=== PATIENT | female | born 1985 ===

== ENCOUNTER 2021-10-02 08:55 | Outpatient (CLI) | payer OTHER ==
[~2021-10-02 08:55] MED LIST: ANALPRAM HC RC; COLACE100 MG PO; TYLENOL-CODEINE1 TAB PO
== END 2021-10-02 08:58 | disposition home or self-care (01) ==
LOC: NUCLEAR 08:55
DX: I11.9 Hypertensive heart disease without heart failure (principal); Z88.0 Allergy status to penicillin

== ENCOUNTER 2024-06-14 05:24 | Day surgery (SDC) | payer OTHER ==
[2024-06-08 13:20] VITALS: BP 106/71
[~2024-06-14] VITALS: Ht 160 cm; Wt 61.2 kg
[~2024-06-14 05:24] MED LIST changes: +HYFIBER WI12 GM/303
[2024-06-14] MEDS ORDERED: levoFLOXacin IN DEXTROSE 5 % 500MG/100ML PIGGYBAG IV ONE (07:11)
[2024-06-14] MEDS ORDERED: HEMOSTATIC MATRIX 1 KIT KIT TOP ONE ×2 (07:11→07:45)
[2024-06-14] MEDS ORDERED: DIBUCAINE 30 GM TUBE ONE (07:11)
[2024-06-14] MEDS ORDERED: BUPIVACAINE HCL/MPF 0.5% 30ML VIAL ONE (07:11)
[2024-06-14] MEDS ORDERED: LIDOCAINE HCL 1%/EPINEPHRINE 20ML VIAL IJ ONE ×2 (07:11→07:45)
[2024-06-14] MEDS ORDERED: METRONIDAZOLE/SODIUM CHLORIDE 500 MG/100 ML PIGGYBACK IV ONE ×3 (07:11→07:45)
[2024-06-14] MEDS ORDERED: POVIDONE-IODINE 118 ML BOTT TOP ONE ×2 (07:14→07:45)
[2024-06-14] MEDS ORDERED: DIBUCAINE 30 GM TUBE RECTAL ONE (07:45)
[2024-06-14] MEDS ORDERED: levoFLOXacin IN DEXTROSE 5 % 5 MG/ML PIGGYBAG IV ONE (07:45)
[2024-06-14] MEDS ORDERED: BUPIVACAINE HCL 30 ML VIAL IJ ONE (07:45)
[2024-06-14] MEDS ORDERED: INTESTINEX680 M1 PO (10:58)
[2024-06-14] MEDS ORDERED: PERCOCET 5-3251 EACH PO (10:59)
[2024-06-14] MEDS ORDERED: NEURONTIN300 MG PO (10:59)
[2024-06-14] MEDS ORDERED: CELECOXIB200 MG PO (11:00)
== END 2024-06-14 15:35 | disposition home or self-care (01) ==
LOC: CIR.AMB 05:24
PROVIDERS: ATTEND Surgery
DX: K60.1 Chronic anal fissure (principal); K62.5 Hemorrhage of anus and rectum; K62.89 Other specified diseases of anus and rectum